=== PATIENT | female | born 1985 | race Asian ===

== ENCOUNTER 2019-06-02 13:52 | Emergency (ER) | payer MEDICAID ==
[~2019-06-02] VITALS: Ht 162.6 cm; Wt 77.3 kg
[~2019-06-02 13:52] MED LIST: BIPERIDEN PO; CHLO100T24 PO; CHLO50 PO; FLUD25I IM; LITH300T PO
[2019-06-02] MEDS ORDERED: HYD25 PO (14:08)
[2019-06-02] MEDS ORDERED: QUET100T PO (14:08)
[2019-06-02] MEDS ORDERED: ESCI10TA PO (14:08)
[2019-06-02 17:08] VITALS: BP 130/77
== END 2019-06-02 17:17 | disposition home or self-care (01) ==
LOC: EMS 13:57
DX: G47.00 Insomnia, unspecified (principal); F41.9 Anxiety disorder, unspecified; F32.9 Major depressive disorder, single episode, unspecified; F20.9 Schizophrenia, unspecified; Z79.899 Other long term (current) drug therapy